=== PATIENT | female | born 1965 | race Caucasian/White ===

== ENCOUNTER → 2017-08-31 | Day surgery (SDC) | payer OTHER ==
[2017-08-17 11:52] VITALS: BMI 43.0
--- NOTE | 2017-08-17 12:18 | PAT Medication Instructions ---
Service Date Aug 17, 2017. Current Home Medication List Clonazepam (Klonopin), 1 MG PO HS Diphenhydramine Hcl (Benadryl Allergy), 1 CAP PO HS PRN for PRN Etodolac (Etodolac), 1 CAP PO DAILY PRN for PRN Furosemide (Lasix), 20 MG PO BID Gabapentin (Neurontin), 600 MG PO TID Levothyroxine Sodium (Levothyroxine Sodium), 1 TAB PO QAM Loratadine (Claritin), 10 MG PO DAILY PRN for ALLERGIC REACTION Omeprazole (Prilosec), 20 MG PO BID Pravastatin Sodium (Pravachol), 10 MG PO QPM Medication Instructions For Your Scheduled Surgery -Contact your surgeon for instructions for: Etodolac (Etodolac), 1 CAP PO DAILY PRN for PRN - Hold the following medications the night before surgery: Furosemide (Lasix), 20 MG PO BID - Hold the following medications the morning of surgery: Furosemide (Lasix), 20 MG PO BID Loratadine (Claritin), 10 MG PO DAILY PRN for ALLERGIC REACTION Diphenhydramine Hcl (Benadryl Allergy), 1 CAP PO HS PRN for PRN - Take the following medications the morning of surgery with a sip of water: Gabapentin (Neurontin), 600 MG PO TID Levothyroxine Sodium (Levothyroxine Sodium), 1 TAB PO QAM Omeprazole (Prilosec), 20 MG PO BID - Take the following medications as scheduled the night before surgery: Clonazepam (Klonopin), 1 MG PO HS Diphenhydramine Hcl (Benadryl Allergy), 1 CAP PO HS PRN for PRN Gabapentin (Neurontin), 600 MG PO TID Omeprazole (Prilosec), 20 MG PO BID Pravastatin Sodium (Pravachol), 10 MG PO QPM Loratadine (Claritin), 10 MG PO DAILY PRN for ALLERGIC REACTION If you have any questions please call us at [phone] or [phone] or [phone]
[2017-08-17 12:55] LABS: BASO % 0.3 %; BASO ABS # 0.02 K/uL (0-0.2); EOS % 1.3 %; HEMATOCRIT 37.7 % (37-47); HEMOGLOBIN 12.1 g/dL (12.0-16.0); IG# 0.02 K/uL (0.00-0.02); LYMPH % 26.8 %; LYMPH ABS # 2.07 K/uL (1.2-3.4); MEAN CELL VOLUME 83.8 fL (80-100); MEAN CORPUSCULAR HEMOGLOBIN 26.9 pg (25-34); MEAN CORPUSCULAR HGB CONC 32.1 g/dl (32-36); MEAN PLATELET VOLUME 12.1 fL (7.4-10.4); MONO % 10.6 %; MONO ABS # 0.82 K/uL (0.11-0.59); NEUT % 60.7 %; PLATELET COUNT 213 K/uL (130-400); RED CELL DISTRIBUTION WIDTH CV 15.1 % (11.5-14.5); RED CELL DISTRIBUTION WIDTH SD 46.1 fL (36.4-46.3); WHITE BLOOD COUNT 7.73 K/uL (4.8-10.8)
[2017-08-17 13:10] LABS: CALCIUM 9.1 mg/dl (8.5-10.1); CREATININE 0.91 mg/dl (0.60-1.20); POTASSIUM 4.1 mmol/L (3.5-5.1)
[~2017-08-31] VITALS: Ht 175.3 cm; Wt 133.6 kg
[~2017-08-31] MED LIST: ATROPINE SULFATE 0.1 MG/ML 5ML SYR IV PRN; CLON1TAB3 PO; DEXAMETHASONE SOD INJ 4 MG/ML VIAL ONE; DIPH25CA65 PO; ETOD300C20 PO; EpHEDrine SULFATE INJ 50 MG/ML AMP IV PRN; FENTANYL CITRATE INJ 50 MCG/1 ML 2 ML VIAL ONE; FLUMAZENIL 0.1 MG/1 ML 10 ML VIAL IV PRN; FURO-85 PO; GABA-113 PO; HYDROmorphone INJ 2 MG/ML SYR/VIAL IV PRN; IBUPROFEN 600 MG TAB PO PRN; KETOROLAC TROMETHAMINE 30 MG/ML VIAL IV. PRN; LABETALOL HCL IV 5 MG/ML 20ML IV PRN; LACTATED RINGER'S 1000ML 1,000 ML IV SCH; LEVO88TA3 PO; LIDOCAINE HCL 2% 2 ML VIAL (20MG/ML) ONE; LORA10TA6 PO; MEPERIDINE HCL 25 MG/ML CARP IV PRN; MIDAZOLAM HCL 1 MG/ML 2ML VIAL ONE; MTR600X PO; NALOXONE HCL 0.4 MG/1 ML VIAL/CARP IV PRN; OMEP20CA59 PO; ONDANSETRON INJ 2 MG/ML 2 ML VIAL IV PRN; ONDANSETRON INJ 2 MG/ML 2 ML VIAL ONE; OXYCODONE/ACETAMINOPHEN 5-325 TAB PO PRN; PHENYLEPHRINE 100MCG/ML 5ML SYR IV PRN; PRAV20TA PO; PROPOFOL IV EMULSION 10 MG/ML 20 ML VIAL IV ONE; SODIUM CHLORIDE 0.9% 1000ML 1,000 ML IV SCH; prednisone taper PO; steriod cream TOP
[2017-08-31 08:12] VITALS: BP 120/68; PULSE 78; TEMP 37.1; O2SAT 95; Ht 175.3 cm; Wt 133.6 kg
--- NOTE | 2017-08-31 09:33 | History & Physical Bridge Note ---
H&P Re-Evaluation Bridge Note: I have examined the patient, reviewed the History & Physical and in the interval since the performance of the History & Physical I have noted the following changes of clinical significance: No changes noted
--- NOTE | 2017-08-31 10:52 | [facility] Post Operative Brief Note ---
Immediate Operative Summary Operative Date Aug 31, 2017. Pre-Operative Diagnosis Thickened Endometrium Post-Operative Diagnosis Thickened Endometrium Procedure(s) Performed Hysteroscopy Dilation and Currettage and Myosure Surgeon Dr. Katherine Evans Matrix Supervisor Surgeon(s) None Estimated Blood Loss 5 ml Findings Consistent with Post-Op Diagnosis Fluids (cc crystalloids) 500 ml Specimens A: Endometrial tissue B: Endometrial currettings Drains None Anesthesia Type General Complication(s) none Disposition Disposition: Recovery Room / PACU
--- NOTE | 2017-08-31 11:02 | [facility] Operative Report ---
Operative Report Operative Date Aug 31, 2017. Pre-Operative Diagnosis Thickened Endometrium Post-Operative Diagnosis Thickened Endometrium Procedure(s) Performed Hysteroscopy Dilation and Currettage and Myosure Surgeon Dr. Katherine Evans Marine Gear Keeper Surgeon(s) None Estimated Blood Loss 5 ml Findings 1. Normal 8 cm anteverted uterus 2. Thickened endometrium and polypoid tissue noted on the anterior wall bilaterally 3. Bilaterally tubal ostia visualized 4. No fibroids noted Fluids 500 ml Specimens A: Endometrial tissue B: Endometrial currettings Drains None Anesthesia Type General Complication(s) none Disposition Recovery Room / PACU Indications 51 yo post-menopausal female with a thickened endometrial lining. Two office endometrial biopsies attempted but unsuccessful. Patient desires operative management via D&C hysteroscopy with myosure. Description of Procedure Risks, benefits and alternatives discussed with the patient at length. Informed consent was previously obtained. The patient was taken to the operating room. General anesthesia was obtained without difficulty. She was then prepped and draped in the lithotomy position in yellow fin stirrups. Examination under anesthesia revealed a normal size anteverted uterus. No adnexal masses were palpable. A weighted speculum was placed inside the vagina. The anterior lip of the cervix grasped with single-tooth tenaculum. The cervix was gently dilated to ensure reduction with diagnostic hysteroscope. The hysteroscope was introduced into the uterine fundus. Both ostia were easily visualized. The cavity appeared smooth. There was some thickening of endometrium with some scant polypoid tissue on the anterior wall. The hysteroscope was removed. The cervix was the serially dilated to #27.The scope for the myosure was then introduced into the uterine cavity. The endometrial and polypoid tissue was obtained with the myosure device. The scope was removed. Sharp curettage followed. Tissue was obtained. All specimens sent to pathology for further evaluation. All instruments removed from the vagina. Hemostasis was achieved. The patient was awakened and taken to the recovery room in stable condition. I attest to the content of the Intraoperative Record and any orders documented therein. Any exceptions are noted below.
--- NOTE | 2017-08-31 11:07 | Discharge Instructions ---
Discharge Instructions Date of Service Aug 31, 2017. Admission Reason for Admission: Thickened Endometrium Discharge Discharge Diagnosis / Problem: Postop Discharge Goals Goal(s): Routine recovery after surgery Activity Recommendations Activity Limitations: as noted below ACTIVITY RECOMMENDATIONS: * Avoid tampons, douching, hot tubs, pools, and intercourse until bleeding has stopped. * May shower as usual. * No strenuous activity for 24-48 hours. After 24-48 hours, you can do anything you feel like doing (driving and sports are okay). RETURN TO SCHOOL/WORK: * You may return to school or work after 24 hours unless specified by your physician. DIET: * Resume previous diet. MEDICATIONS: Resume previous medications unless instructed otherwise by your surgeon. Ibuprofen 600mg tablets every 4-6 hours as needed --OR-- Aleve 2 tablets every 8-12 hours as needed for post-operative discomfort Medications are over the counter. Tylenol may be used if above medications are contraindicated or not preferred. Medication should be taken with food or milk. do not take on an empty stomach. SPECIAL CARE INSTRUCTIONS: * Call office if you experience increased pelvic pain or discomfort not relieved by pain medicine, if you have foul smelling vaginal discharge, if you have bleeding that is heavier than a normal menstrual flow. If you are changing a maxi pad every 1- 2 hours, this is too heavy. vaginal spotting is normal for 1-2 weeks. FOLLOW UP VISIT: Post-operative appointment previously scheduled. . Current Hospital Diet Patient's current hospital diet: Discharge Diet Recommended Diet: Regular Diet Procedures Procedures Performed: Hysteroscopy Dilation and Currettage and Myosure Pending Studies Studies pending at discharge: no Medical Emergencies . Who to Call and When: Medical Emergencies: If at any time you feel your situation is an emergency, please call 911 immediately. . Non-Emergent Contact Non-Emergency issues call your: Specialist . . "Provider Documentation" section prepared by Katherine Fowler. .
[2017-08-31] MEDS: FENTANYL CITRATE INJ 50 MCG/1 ML 2 ML VIAL IV PRN ×3 (11:16→11:27)
--- NOTE | 2017-08-31 11:45 | Anesthesiology Progress Note ---
Anesthesia Post Op Note Date & Time Aug 31, 2017 at 11:44 Vital Signs Pain Intensity: 2 Vital Signs Past 12 Hours Date Time Temp Pulse Resp B/P (MAP) Pulse Ox O2 Delivery O2 Flow Rate FiO2 08/31/17 11:35 75 15 151/97 92 Room Air 08/31/17 11:25 75 15 143/93 90 Room Air 08/31/17 11:15 69 14 152/82 100 Oxymask 10 08/31/17 11:05 70 13 135/102 100 Oxymask 10 08/31/17 10:59 36.3 75 10 139/100 100 Oxymask 10 08/31/17 08:12 37.1 78 18 120/68 (85) 95 Room Air Notes Mental Status: alert / awake / arousable, participated in evaluation Pt Amnestic to Procedure: Yes Nausea / Vomiting: adequately controlled Pain: adequately controlled Airway Patency, RR, SpO2: stable & adequate BP & HR: stable & adequate Hydration State: stable & adequate Anesthetic Complications: no major complications apparent
[2017-08-31 11:57] VITALS: BP 125/75; PULSE 78; TEMP 36.6; O2SAT 92
[2017-08-31 12:40] VITALS: BP 145/68; PULSE 83; TEMP 36.5; O2SAT 95
== END | disposition home or self-care (01) ==
LOC: C.ACU 07:06
PROVIDERS: ATTEND Obstetrics & Gynecology Obstetrics
DX: R93.8 Abnormal findings on diagnostic imaging of other specified body structures (principal); G47.33 Obstructive sleep apnea (adult) (pediatric); E78.5 Hyperlipidemia, unspecified; K21.9 Gastro-esophageal reflux disease without esophagitis; E03.9 Hypothyroidism, unspecified; E66.01 Morbid (severe) obesity due to excess calories; Z68.41 Body mass index [BMI] 40.0-44.9, adult; Z79.899 Other long term (current) drug therapy; Z90.89 Acquired absence of other organs; Z88.0 Allergy status to penicillin; Z88.7 Allergy status to serum and vaccine; Z98.890 Other specified postprocedural states; Z98.51 Tubal ligation status; Z83.3 Family history of diabetes mellitus; Z80.3 Family history of malignant neoplasm of breast; Z81.8 Family history of other mental and behavioral disorders; Z84.1 Family history of disorders of kidney and ureter

== ENCOUNTER 2017-09-29 11:17 | Emergency (ER) | payer OTHER ==
[~2017-09-29 11:17] MED LIST changes: -ATROPINE SULFATE 0.1 MG/ML 5ML SYR IV PRN; -DEXAMETHASONE SOD INJ 4 MG/ML VIAL ONE; -EpHEDrine SULFATE INJ 50 MG/ML AMP IV PRN; -FENTANYL CITRATE INJ 50 MCG/1 ML 2 ML VIAL ONE; -FLUMAZENIL 0.1 MG/1 ML 10 ML VIAL IV PRN; -HYDROmorphone INJ 2 MG/ML SYR/VIAL IV PRN; -IBUPROFEN 600 MG TAB PO PRN; -KETOROLAC TROMETHAMINE 30 MG/ML VIAL IV. PRN; -LABETALOL HCL IV 5 MG/ML 20ML IV PRN; -LACTATED RINGER'S 1000ML 1,000 ML IV SCH; -LIDOCAINE HCL 2% 2 ML VIAL (20MG/ML) ONE; -MEPERIDINE HCL 25 MG/ML CARP IV PRN; -MIDAZOLAM HCL 1 MG/ML 2ML VIAL ONE; -NALOXONE HCL 0.4 MG/1 ML VIAL/CARP IV PRN; -ONDANSETRON INJ 2 MG/ML 2 ML VIAL IV PRN; -ONDANSETRON INJ 2 MG/ML 2 ML VIAL ONE; -OXYCODONE/ACETAMINOPHEN 5-325 TAB PO PRN; -PHENYLEPHRINE 100MCG/ML 5ML SYR IV PRN; -PROPOFOL IV EMULSION 10 MG/ML 20 ML VIAL IV ONE; -SODIUM CHLORIDE 0.9% 1000ML 1,000 ML IV SCH
[2017-09-29 11:22] VITALS: TEMP 36.9
[2017-09-29] MEDS ORDERED: CLC/300 PO (11:36)
[2017-09-29] MEDS ORDERED: PRLSR20 PO (11:38)
--- NOTE | 2017-09-29 12:27 | EMERGENCY ROOM VISIT NOTE ---
History Report prepared by Mica: Aurea Rai Under the Supervision of: Dr. Everton Lal M.D. First contact with patient: 12:06 Chief Complaint: INFECTION Stated Complaint: LEFT LEG INFECTED AND REAL SORE Nursing Triage Summary: pt states left leg infected. pt states she ran out of antibiotics and infections won't go away. pt states lumps on her leg are draining fluid. multiple scattered scabs to bilateral legs and arms. scabs cool to touch. 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 She states the site has "constant tenderness and is very sore." She states she was on Bactrim and clindamycin however the the rash recently returned.. She denies any fevers, chest pain, difficulty breathing. She states she had an ultrasound done within the last 2 weeks to rule out DVT which was negative. Patient reports no new exposures to any detergents/soaps or chemicals. No recent travel. 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 Review of Systems See HPI for pertinent positives and negatives. A total of ten systems were reviewed and were otherwise negative. Past Medical & Surgical Medical Problems: (1) Hypothyroidism (2) Right Inguinal Hernia Repair Family History Cancer Diabetes mellitus Gallbladder disease Heart disease Hypertension Kidney disease Kidney stones Lung disease Social History Smoking Status: Former Smoker Alcohol Use: none Marital Status: Housing Status: lives with family Occupation Status: employed Current/Historical Medications Scheduled Clindamycin HCl (Clindamycin HCl), 300 MG PO QID Doxycycline Monohydrate (Monodox), 100 MG PO BID Furosemide (Lasix), 40 MG PO DAILY Gabapentin (Neurontin), 600 MG PO TID Levothyroxine Sodium (Levothyroxine Sodium), 1 TAB PO QAM Mupirocin 2% (Bactroban 2%), 1 APPLN EXT BID Omeprazole (Prilosec), 20 MG PO BID Pravastatin Sodium (Pravachol), 10 MG PO QPM Scheduled PRN Diphenhydramine Hcl (Benadryl Allergy), 1 CAP PO HS PRN for PRN Ibuprofen (Ibuprofen), 600 MG PO Q6H PRN for Pain Loratadine (Claritin), 10 MG PO DAILY PRN for ALLERGIC REACTION Allergies Coded Allergies: Guaifenesin (Verified Allergy, Intermediate, HIVES, 09/29/17) Penicillins (Verified Allergy, Intermediate, RASH, 09/29/17) Tetanus Toxoid (Verified Allergy, Intermediate, RASH AT INJECTION SITE, ) Physical Exam Vital Signs Date Time Temp Pulse Resp B/P (MAP) Pulse Ox O2 Delivery O2 Flow Rate FiO2 09/29/17 12:44 75 18 111/63 99 Room Air 09/29/17 11:22 36.9 80 20 153/82 97 Room Air Physical Exam Physical Exam GENERAL: She is oriented to person, place, and time. She appears well- developed and well-nourished. She does not appear distressed. ____ HENT: Exam performed. Head: Normocephalic and atraumatic. Right Ear: External ear normal. No mastoid tenderness. Left Ear: External ear normal. No mastoid tenderness. Mouth/Throat: The oropharynx is clear and moist. No trismus in the jaw. No dental abscesses or uvula swelling. No oropharyngeal exudate or tonsillar abscesses. ____ EYES: Conjunctivae and EOM are normal. Pupils are equal, round, and reactive to light. Right eye exhibits no discharge. Left eye exhibits no discharge. No scleral icterus. ____ NECK: Normal range of motion. Neck supple. No JVD present. No spinous process tenderness present. No carotid bruit present. No rigidity. No tracheal deviation and normal range of motion present. No Brudzinski's sign and no Kernig 's sign noted. ____ CV: Normal rate, regular rhythm, normal heart sounds and intact distal pulses. There is no peripheral edema. Palpable radial pulses bue. ____ PULM/CHEST: Effort normal and breath sounds normal. No respiratory distress. No stridor. She has no wheezes. She has no rales. Chest Wall: She exhibits no tenderness. ____ ABD: The abdomen is soft. Bowel sounds are normal. She has no distension. No mass is present. There is no tenderness. There is no rebound, no guarding, no Beal's sign and no tenderness at McBurney's point. Rovsig negative MUSC/SKEL: Normal range of motion. There is no peripheral edema, tenderness or deformity. LYMPH: No cervical adenopathy. ____ NEURO: She is alert and oriented to person, place, and time. She has normal strength. No cranial nerve deficit or sensory deficit. Coordination and gait normal. GCS eye subscore is 4. GCS verbal subscore is 5. GCS motor subscore is 6. Cerebellar tests wnl. ____ SKIN: Multiple scabs present over the BLE with mild surrounding erythema. no vesicles, no fluctuance, no draining, no bleeding, Nikolsky negative. Consistent with the appearance of cellulitis. PSYCH: She has a normal mood and affect. Her behavior is normal. Judgment and thought content normal. ____ Medical Decision & Procedures ED Course 1225: The patient was evaluated in room C10. A complete history and physical exam was performed. 1239: Bedside ultrasound shows no fluid collection or abscess. Patient will be discharged with Bactroban and oral antibiotics for the cellulitis. DISCHARGE - Plan of care discussed with patient and questions answered. The patient was given both verbal and printed discharge instructions. The patient verbalized understanding and ability to comply. The patient is to seek outpatient follow up as noted in the discharge instructions. The patient verbalized understanding and ability to comply. The patient is discharged in stable condition. The patient was instructed to return for worsening symptoms. Medical Decision Bedside ultrasound shows no fluid collection or abscess. Patient will be discharged with Bactroban and oral antibiotics for the cellulitis. DISCHARGE - Plan of care discussed with patient and questions answered. The patient was given both verbal and printed discharge instructions. The patient verbalized understanding and ability to comply. The patient is to seek outpatient follow up as noted in the discharge instructions. The patient verbalized understanding and ability to comply. The patient is discharged in stable condition. The patient was instructed to return for worsening symptoms. Medication Reconcilliation Current Medication List: was personally reviewed by me Blood Pressure Screening Patient's blood pressure: Normal blood pressure Blood pressure disposition: Did not require urgent referral Impression Primary Impression: Cellulitis Scribe Attestation The scribe's documentation has been prepared under my direction and personally reviewed by me in its entirety. I confirm that the note above accurately reflects all work, treatment, procedures, and medical decision making performed by me. The chart was completed utilizing [employer] Speech voice recognition software. Grammatical errors, random word insertions, pronoun errors, and incomplete sentences are an occasional consequence of this system due to software limitations, ambient noise, and hardware issues. Any formal questions or concerns about the content, text, or information contained within the body of this dictation should be directly addressed to the physician for clarification. Departure Information Dispostion Home / Self-Care Prescriptions Mupirocin 2% (Bactroban 2%) 30 Gm Cr 1 APPLN EXT BID for 7 Days, #1 TUBE Prov: Everton Lal M.D. 09/29/17 Doxycycline Monohydrate (Monodox) 100 Mg Cap 100 MG PO BID for 7 Days, #14 CAP Prov: Everton Lal M.D. 09/29/17 Referrals Brittani Edward D.O. (PCP) Forms HOME CARE DOCUMENTATION FORM, IMPORTANT VISIT INFORMATION, WORK / SCHOOL INSTRUCTIONS Patient Instructions My [facility] Additional Instructions Return to the emergency department follow-up with your PCP if he developed fever greater than 100.4. Problem Qualifiers Primary Impression: Cellulitis Site of cellulitis: extremity Site of cellulitis of extremity: lower extremity Laterality: unspecified laterality Qualified Codes: L03.119 - Cellulitis of unspecified part of limb
[2017-09-29] MEDS ORDERED: DOXY100C76 PO (12:42)
[2017-09-29] MEDS ORDERED: BCTCR/30 EXT (12:43)
[2017-09-29 12:44] VITALS: BP 111/63; PULSE 75; O2SAT 99
== END 2017-09-29 12:55 | disposition home or self-care (01) ==
LOC: C.EDB 11:20 → C.EDC 12:55
DX: L03.119 Cellulitis of unspecified part of limb (principal); E03.9 Hypothyroidism, unspecified; Z87.891 Personal history of nicotine dependence; Z79.899 Other long term (current) drug therapy; Z88.0 Allergy status to penicillin; Z88.8 Allergy status to other drugs, medicaments and biological substances